=== PATIENT | female | born 1990 | race Caucasian/White ===

== ENCOUNTER 2023-06-01 14:28 | Emergency (ER) | payer MEDICAID ==
[~2023-06-01] VITALS: Ht 157.5 cm; Wt 68.6 kg
[~2023-06-01 14:28] MED LIST: AMOX-100 PO
[2023-06-01 14:55] LABS: MEAN PLATELET VOLUME 7.5 FL (7.4-10.4); PLATELET COUNT 261 X10'3 (140-440)
[2023-06-01 14:56] VITALS: BP 129/93; PULSE 76; RESP 18; TEMP 97.6; O2SAT 99
[2023-06-01 14:58] LABS: BASOPHILS % (AUTO) 0.5 % (0-1); EOSINOPHILS # (AUTO) 0.1 X10'3 (0-0.9); EOSINOPHILS % (AUTO) 0.7 % (0-6); HEMATOCRIT 40.1 % (35.0-45.0); HEMOGLOBIN 13.9 g/dl (12.0-16.0); LYMPHOCYTES # (AUTO) 2.5 X10'3 (1.1-4.8); LYMPHOCYTES % (AUTO) 31.4 % (21-51); MEAN CORPUSCULAR HEMOGLOBIN 30.6 PG (27.0-31.0); MEAN CORPUSCULAR HGB CONC 34.7 g/dL (33.0-36.5); MEAN CORPUSCULAR VOLUME 88.3 FL (78-98); MONOCYTES # (AUTO) 0.4 X10'3 (0-0.9); MONOCYTES % (AUTO) 5.3 % (2-12); NEUTROPHILS # (AUTO) 4.9 X10'3 (1.8-7.7); NEUTROPHILS % (AUTO) 62.1 % (42-75); RED BLOOD COUNT 4.55 X10'6 (4.20-5.60); RED CELL DISTRIBUTION WIDTH 13.6 % (11.5-14.5); WHITE BLOOD COUNT 7.8 X10'3 (4.5-11.0)
[2023-06-01 15:38] LABS: APTT 27 SECONDS (22-32)
[2023-06-01 15:48] LABS: ALANINE AMINOTRANSFERASE 22 U/L (12-78); ALBUMIN 3.8 G/DL (3.4-5.0); ALBUMIN/GLOBULIN RATIO 1.2 (1.1-1.5); ALKALINE PHOSPHATASE 56 IU/L (46-116); ANION GAP 11 (8-16); ASPARTATE AMINO TRANSFERASE 20 U/L (10-37); BILIRUBIN,TOTAL 0.5 MG/DL (0.1-1.0); BLOOD UREA NITROGEN 12 MG/DL (7-18); BUN/CREATININE RATIO 16.2 (10.0-20.0); CHLORIDE 106 MMOL/L (99-107); CREATININE 0.74 MG/DL (0.40-0.90); GLUCOSE 92 MG/DL (70-104); SODIUM 141 MMOL/L (135-145); TOTAL CARBON DIOXIDE 24.5 MMOL/L (24-32); TOTAL PROTEIN 6.9 G/DL (6.4-8.2); eGFR 90 ML/MIN
== END 2023-06-01 21:24 | disposition left against medical advice (07) ==
LOC: ER 14:29
DX: R07.9 Chest pain, unspecified (principal); Z53.21 Procedure and treatment not carried out due to patient leaving prior to being seen by health care provider
CPT/HCPCS: 71045; 80053; 83880; 84484; 85025; 85610; 85730; 93005; 99281

== ENCOUNTER 2023-08-07 17:54 | Emergency (ER) | payer MEDICAID ==
[~2023-08-07] VITALS: Ht 172.7 cm; Wt 84.1 kg
[2023-08-07 17:59] VITALS: BP 123/98; PULSE 106; RESP 16; TEMP 98.2; O2SAT 97
[2023-08-07 18:57] LABS: URINE HCG NEGATIVE (NEG)
== END 2023-08-07 21:01 | disposition home or self-care (01) ==
LOC: ER 17:55
CPT/HCPCS: 81025; 99283

== ENCOUNTER 2024-07-02 23:46 | Emergency (ER) | payer MEDICAID ==
[~2024-07-02] VITALS: Ht 157.5 cm; Wt 70.5 kg
[2024-07-03] MEDS: ketorolac trometh 30MG/ML vial 30 MG/ML VIAL IV ONE (00:20)
[2024-07-03] MEDS: normal saline 1000ML IV soln IVB ONE (00:21)
[2024-07-03 00:29] LABS: BASOPHILS % (AUTO) 0.3 % (0-1); EOSINOPHILS # (AUTO) 0.1 X10'3 (0-0.9); EOSINOPHILS % (AUTO) 1.6 % (0-6); HEMATOCRIT 32.3 % (35.0-45.0); HEMOGLOBIN 10.9 g/dl (12.0-16.0); LYMPHOCYTES # (AUTO) 2.5 X10'3 (1.1-4.8); LYMPHOCYTES % (AUTO) 40.8 % (21-51); MEAN CORPUSCULAR HEMOGLOBIN 28.1 PG (27.0-31.0); MEAN CORPUSCULAR HGB CONC 33.8 g/dL (33.0-36.5); MEAN CORPUSCULAR VOLUME 83.2 FL (78-98); MEAN PLATELET VOLUME 7.8 FL (7.4-10.4); MONOCYTES # (AUTO) 0.4 X10'3 (0-0.9); MONOCYTES % (AUTO) 7.1 % (2-12); NEUTROPHILS # (AUTO) 3.1 X10'3 (1.8-7.7); NEUTROPHILS % (AUTO) 50.2 % (42-75); PLATELET COUNT 253 X10'3 (140-440); RED BLOOD COUNT 3.88 X10'6 (4.20-5.60); RED CELL DISTRIBUTION WIDTH 13.6 % (11.5-14.5); WHITE BLOOD COUNT 6.1 X10'3 (4.5-11.0)
[2024-07-03 00:38] LABS: ALANINE AMINOTRANSFERASE 35 U/L (12-78); ALBUMIN 3.4 G/DL (3.4-5.0); ALBUMIN/GLOBULIN RATIO 1.1 (1.1-1.5); ALKALINE PHOSPHATASE 55 IU/L (46-116); ANION GAP 9 (8-16); ASPARTATE AMINO TRANSFERASE 51 U/L (10-37); BILIRUBIN,TOTAL 0.4 MG/DL (0.1-1.0); BLOOD UREA NITROGEN 11 MG/DL (7-18); BUN/CREATININE RATIO 13.9 (10.0-20.0); CALCIUM 8.5 MG/DL (8.5-10.1); CHLORIDE 106 MMOL/L (99-107); CREATININE 0.79 MG/DL (0.40-0.90); GLUCOSE 88 MG/DL (70-104); POTASSIUM 3.9 MMOL/L (3.5-5.1); SODIUM 142 MMOL/L (135-145); TOTAL CARBON DIOXIDE 26.8 MMOL/L (24-32); TOTAL PROTEIN 6.6 G/DL (6.4-8.2); eCRCL 79 ML/MIN; eGFR 83 ML/MIN
[2024-07-03 00:41] LABS: LIPASE 38 U/L (16-77)
[2024-07-03 01:02] LABS: BILIRUBIN,URINE NEGATIVE (Neg); CLARITY,URINE CLEAR (Clear); COLOR,URINE YELLOW (Yellow); GLUCOSE, URINE NEGATIVE (Neg); KETONES,URINE NEGATIVE (Neg); LEUKOCYTE ESTERASE ,URINE NEGATIVE (Neg); NITRITES, URINE NEGATIVE (Neg); OCCULT BLOOD,URINE NEGATIVE (Neg); PROTEIN,URINE NEGATIVE (Neg); URINE HCG NEGATIVE (NEG); UROBILINOGEN,URINE 0.2 E.U/dL (0.2-1.0)
[2024-07-03 01:12] LABS: UA COLLECTION TYPE CLN CATCH MIDSTREAM
[2024-07-03] MEDS: ondansetron/PF 4mg/2ml inj IV ONE (02:17)
[2024-07-03] MEDS: LIDOcaine 2% Viscous 15ml cup MM ONE (02:18)
[2024-07-03] MEDS: magnesium hydroxide 30ml (MOM) UD suspension PO ONE (02:18)
[2024-07-03 03:05] VITALS: BP 90/59; PULSE 62; RESP 17; TEMP 98.4; O2SAT 98
== END 2024-07-03 03:32 | disposition home or self-care (01) ==
LOC: ER 23:47
DX: R10.11 Right upper quadrant pain (principal); R07.9 Chest pain, unspecified; F17.200 Nicotine dependence, unspecified, uncomplicated; F10.90 Alcohol use, unspecified, uncomplicated; Z90.49 Acquired absence of other specified parts of digestive tract
CPT/HCPCS: 36415; 80053; 81003; 81025; 83690; 84484; 85025; 93005; 96361; 96374; 96375; 99284; J1885; J2405; J7030

== ENCOUNTER 2024-07-06 01:04 | Emergency (ER) | payer MEDICAID ==
[~2024-07-06] VITALS: Ht 157.5 cm; Wt 70.5 kg
[2024-07-06 04:06] VITALS: BP 122/79; PULSE 78; RESP 14; TEMP 97.9; O2SAT 99
== END 2024-07-06 05:13 | disposition home or self-care (01) ==
LOC: ER 01:04
DX: R53.1 Weakness (principal); Z59.00 Homelessness unspecified; Z90.49 Acquired absence of other specified parts of digestive tract; Z98.890 Other specified postprocedural states; F10.90 Alcohol use, unspecified, uncomplicated
CPT/HCPCS: 99281

== ENCOUNTER 2024-07-09 02:29 | Emergency (ER) | payer MEDICAID ==
[~2024-07-09] VITALS: Ht 157.5 cm; Wt 72.8 kg
[2024-07-09 02:35] VITALS: BP 103/70; PULSE 80; RESP 14; TEMP 97.7; O2SAT 96
[2024-07-09] MEDS: normal saline 1000ML IV soln IVB ONE (03:14)
== END 2024-07-09 04:06 | disposition home or self-care (01) ==
LOC: ER 02:30
DX: E86.0 Dehydration (principal); Z90.49 Acquired absence of other specified parts of digestive tract; Z98.890 Other specified postprocedural states
CPT/HCPCS: 96360; 99283; J7030

== ENCOUNTER 2024-08-27 12:48 | Emergency (ER) | payer MEDICAID ==
[~2024-08-27] VITALS: Ht 162.6 cm; Wt 70.0 kg
[2024-08-27] MEDS ORDERED: LORazepam 2 mg/ml vial IM ONE (12:50)
[2024-08-27] MEDS ORDERED: diphenhydrAMINE 50 mg/ml inj IM ONE (12:50)
[2024-08-27] MEDS ORDERED: haloperidol lactate 5mg/ml inj IM ONE (12:50)
[2024-08-27 13:01] VITALS: BP 130/78; PULSE 78; RESP 18; TEMP 98.4; O2SAT 97
== END 2024-08-27 13:13 ==
LOC: ER 12:48
DX: R04.0 Epistaxis (principal); Z90.49 Acquired absence of other specified parts of digestive tract; Z90.89 Acquired absence of other organs
CPT/HCPCS: 99283

== ENCOUNTER 2025-10-05 02:25 | Emergency (ER) | payer MEDICAID ==
[~2025-10-05] VITALS: Ht 157.5 cm; Wt 81.9 kg
[2025-10-05 02:29] VITALS: BP 132/67; PULSE 88; RESP 20; TEMP 98; O2SAT 100
--- NOTE | 2025-10-05 05:04 | Physician Documentation ---
History of Present Illness ~ General Chief Complaint: Multiple Medical Complaints Stated Complaint: FACE BURNING A BLS Time Seen by MD: 05:03 Primary Medical Doctor: None Source: patient Mode of Arrival: POV History of Present Illness Initial Comments 35F presenting to the ED with complaints of "mace in the air." Per nursing staff she was found outside her mission and came into the ED for custodial, talking nonsensically about the fog outside being mace. She is malodorous and dressed in multiple layers. Upon examination she is somewhat drowsy and nonsensical in her speech. At this time she has no complaints. She denies chest pain, SOB, abdominal pain, fever/chills. Medication Reconciliation Allergies: Coded Allergies: No Known Allergies (Unverified , 08/27/24) Past Medical History Past Medical History: No Pertinent History Past Surgical History: cholecystectomy, tonsillectomy Alcohol Use: Heavy Drug Use: none Lives with: Family Lives In: Home Occupation: employed Review of Systems All Other Systems at this time: Reviewed and Negative Physical Exam Physical Exam Vital Signs: Temperature: 98.0, Source: Temporal, Heart Rate: 88, Respiratory Rate: 20, BP: 132/67, Pulse Oximetry: 100, Weight: 81.870 Oxygen Flow Rate: 0 Physical Exam General: Tired and drowsy appearing. No acute distress. Malodorous and unkempt. HEENT: Conjunctiva pink, Sclera clear, Mucus Membranes moist. Neck: Supple without masses and tenderness. Resp: Unlabored. Lungs clear to auscultation bilaterally. Heart: Regular Rate and rhythm, normal S1 and S2 without murmur, rub or gallop. Abdomen: Soft and non tender no organomegaly Extremities: No cyanosis,clubbing or edema. Skin: Warm and Dry. Progress Results/Orders Results/Orders Vital Signs 10/05/25 02:29 Temp 98.0 Pulse 88 Resp 20 B/P (MAP) 132/67 Pulse Ox 100 O2 Flow Rate 0 Medical Decision Making Additional information obtaine: N/A Findings na Differential Diagnosis The patient presents with multiple complaints. By time of my evaluation she denies any acute concerns, and just seems to want to asleep. Her exam is benign. Overall her presentation seems likely a combination of homelessness and mental health. She is not appear to have an acute medical or surgical emergency. She will be discharged, and declined any further resources. Departure Disposition: HOME / SELF CARE / HOMELESS Impression: Primary Impression: General medical examination Additional Impression: Homelessness Condition: Stable Referrals: NO PRIMARY CARE PROVIDER (PCP) Signature Scribe Signature: na Attestation: GWENDOLYN Goode MD Oct 05, 2025 05:04
== END 2025-10-05 05:25 | disposition home or self-care (01) ==
LOC: ER 02:26
DX: Z00.00 Encounter for general adult medical examination without abnormal findings (principal); F10.90 Alcohol use, unspecified, uncomplicated; Z90.49 Acquired absence of other specified parts of digestive tract; Z59.00 Homelessness unspecified; Z90.89 Acquired absence of other organs; Y90.9 Presence of alcohol in blood, level not specified
CPT/HCPCS: 99283

== ENCOUNTER 2025-10-20 11:19 | Emergency (ER) | payer MEDICAID ==
[~2025-10-20] VITALS: Ht 157.5 cm; Wt 87.5 kg
[2025-10-20] MEDS ORDERED: SULF1TAB49 PO (13:11)
--- NOTE | 2025-10-20 13:11 | Physician Documentation ---
History of Present Illness ~ Chief Complaint: Foot pain Stated Complaint: SORE THROAT Time Seen by MD: 12:48 Primary Medical Doctor: None Source: patient Mode of Arrival: POV Exam Limitations: no limitations HPI 35-year-old female with blisters and infections to her hands and feet she has refused to show me her feet she did take 1 glove off to show me blisters. Patient does not want to stay here the wants an Shin wrap Tetanus witin 5 years: No Medication Reconciliation Allergies: Coded Allergies: No Known Allergies (Unverified , 10/20/25) Past Medical History Past Medical History: No Pertinent History Past Surgical History: cholecystectomy, tonsillectomy Alcohol Use: Heavy Drug Use: none Lives with: Family Lives In: Home Occupation: employed Review of Systems All Other Systems at this time: Reviewed and Negative Integumentary: Reports: see HPI Physical Exam Vital Signs: RN Vital Signs have been reviewed: Yes, Temperature: 97.5, Source: Temporal, Heart Rate: 92, Respiratory Rate: 18, BP: 148/76, Pulse Oximetry: 99, Weight: 87.500 Oxygen Flow Rate: 0 Physical Exam General: Alert, no apparent distress. HEENT: moist mucous membranes. Neck: Full range of motion. Respiratory: No respiratory distress speaking in full sentences Chest: No accessory muscle use. Cardiovascular: Appears well perfused Neurologic: Oriented x4. Psychiatric: Normal mood and affect. Skin: Erythema and blistering encasing several fingers on her right hand. Patient would not show us her left hand nor her feet. Patient is declining wound care. Patient is declining any further workup. Moderate swelling to the dorsal aspect of the hand with 1 centralized scabbed small lesion approximately 1-2 mm in diameter. Moving all fingers. Progress Results/Orders Results/Orders Vital Signs 10/20/25 11:37 Temp 97.5 Pulse 92 Resp 18 B/P (MAP) 148/76 Pulse Ox 99 O2 Flow Rate 0 Medical Decision Making Additional information obtaine: old records Findings Patient refusing care antibiotics prescribed General Diff Dx:Considerations: Include: Abrasion Knee Diff Dx:Considerations: Unlikely: Abrasion, Arthritis, Contusion, DJD, Fracture-femur, Fracture-fibula, Fracture-patella, Fracture-tibia, Gout, Hematoma, Laceration, Meniscus injury, Neurovascular injury, Open fracture, Rheumatoid arthritis, Septic, Sprain, Sprain-MCL, Sprain-LCL, Sprain-ACL, Sprain-PCL, Other Ankle Diff Dx:Considerations: Unlikely: Abrasion, Arthritis, Contusion, DJD, Fracture-metatarsal, Fracture-fibula, Fracture-tarsal, Fracture-tibia, Gout, Hematoma, Laceration, Malunion, Neurovascular injury, Nonunion, Open fracture, Osteomyelitis, Rheumatoid arthritis, Sprain, Septic, Ulcer, Other Foot Diff Dx:Considerations: Unlikely: Abrasion, Arthritis, Cellulitis, Contusion, Dislocation, DJD, Fracture-metatarsal, Fracture-phalynx, Fracture- tarsal, Gout, Hematoma, Ingrown toenail, Laceration, Malunion, Neurovascular injury, Open fracture, Paronychia, Puncture, Rheumatoid, Sprain, Septic, Subungual hematoma, Ulcer, Other Toe Diff Dx:Considerations: Unlikely: Abrasion, Cellulitis, Contusion, Dislocation, Felon, Fracture, Hematoma, Laceration, Neurovascular injury, Open fracture, Paronychia, Subungual hematoma, Other Additional Comment Concerned for cellulitis, even osteomyelitis unknown extent of infection with erythema and blistering to fingers. Patient is declining anymore care wanting to wear hospital gloves and then putting her vulva and gloves back on. Departure Time of Disposition: 13:10 Disposition: 01 HOME / SELF CARE / HOMELESS Impression: Primary Impression: General medical examination Additional Impression: Cellulitis Condition: Stable Discharge Instructions: Cellulitis Additional Instructions: Hands clean and dry. Take antibiotics as prescribed the infection does look serious and when you are ready feel free to return to the ER for further workup which would likely include images and blood work. Referrals: NO PRIMARY CARE PROVIDER (PCP) Prescriptions Sulfamethoxazole/Trimethoprim (Bactrim Ds Tablet) 800 Mg-160 Mg Tablet 1 TAB PO Q12H for 10 Days, #20 TAB Prov: DEVORAH BECKER NP 10/20/25 Education Educated: Patient Educated regarding: diagnosis, treatment, need for follow up Signature Scribe Signature: No scribe Attestation: The note accurately reflects work and decisions made by me.Devorah Becker - WINNIE 10/20/25 13:11 DEVORAH BECKER NP Oct 20, 2025 13:11
[2025-10-20 13:26] VITALS: BP 138/64; PULSE 76; RESP 17; TEMP 97.7; O2SAT 99
== END 2025-10-20 13:20 | disposition home or self-care (01) ==
LOC: ER 11:19
DX: Z00.00 Encounter for general adult medical examination without abnormal findings (principal); L03.116 Cellulitis of left lower limb; L03.115 Cellulitis of right lower limb; F10.90 Alcohol use, unspecified, uncomplicated; Z90.49 Acquired absence of other specified parts of digestive tract; Z90.89 Acquired absence of other organs; Y90.9 Presence of alcohol in blood, level not specified
CPT/HCPCS: 99283; A6449